=== PATIENT | male | born 1965 | race Caucasian/White ===

== ENCOUNTER 2019-10-21 10:19 | Emergency (ER) | payer MEDICAID ==
[~2019-10-21] VITALS: Ht 185.4 cm; Wt 108.2 kg
[2019-10-21 10:27] VITALS: BP 149/99
[2019-10-21] MEDS ORDERED: GABA-532 PO (12:39)
[2019-10-21] MEDS ORDERED: NICO-687 TOP (12:42)
== END 2019-10-21 12:48 | disposition home or self-care (01) ==
LOC: ER 10:20
DX: Z02.89 Encounter for other administrative examinations (principal); F10.20 Alcohol dependence, uncomplicated; Y90.9 Presence of alcohol in blood, level not specified; F17.200 Nicotine dependence, unspecified, uncomplicated; Z88.1 Allergy status to other antibiotic agents; Z88.8 Allergy status to other drugs, medicaments and biological substances; Z79.899 Other long term (current) drug therapy
CPT/HCPCS: 99283